=== PATIENT | male | born 1995 | race Caucasian/White ===

== ENCOUNTER → 2022-04-18 | Outpatient (CLI) | payer OTHER ==
--- NOTE | 2022-04-19 10:38 | MR ---
EXAMINATION TYPE: MR shoulder RT wo con DATE OF EXAM: 04/18/2022 COMPARISON: None. HISTORY: Rt shoulder pain for 3 years after injury. TECHNIQUE: Multiplanar, multisequence imaging of the right shoulder is performed without contrast. FINDINGS: Rotator Cuff: Small focal tear at articular surface of the posterior fibers infraspinatus tendon karl uring 6 mm transversely coronal image 20. No full-thickness for expected tear. Rotator cuff muscle bu lk preserved. Acromioclavicular Joint: Mild narrowing with moderate capsular hypertrophy. Underlying fat plane is m aintained. Glenohumeral Joint: Small effusion. No significant spurring Labrum: The labrum appears grossly intact given limitation of non-arthrogram study. Biceps Tendon: The long head of biceps is in normal location within bicipital groove. Bone marrow signal: No focal abnormal marrow signal is appreciated. Other: No additional significant abnormality is appreciated. IMPRESSION: Small focal articular surface partial tearing of the infraspinatus tendon. No labral tear seen.
== END | disposition home or self-care (01) ==
LOC: RADMRIMAIN 16:27
PROVIDERS: ATTEND Physician Assistant
DX: S46.001A Unspecified injury of muscle(s) and tendon(s) of the rotator cuff of right shoulder, initial encounter (principal); M25.611 Stiffness of right shoulder, not elsewhere classified; X58.XXXA Exposure to other specified factors, initial encounter

== ENCOUNTER → 2022-11-02 | Outpatient (CLI) | payer OTHER ==
--- NOTE | 2022-11-02 14:27 | P.SLEEP ---
History of Present Illness DATE: 11/02/2022 CONSULTATION/NEW PATIENT EVALUATION HISTORY OF PRESENT ILLNESS/SLEEP-WAKE EVALUATION: 27 year old gentleman had been evaluated in the sleep center for possible obstructive sleep apnea hypopnea syndrome. SLEEP SCHEDULE: Usually sleep schedule from 10:30 PM to 5:30 AM on weekdays and until 6:30 AM on weekend. FALLING ASLEEP: No significant problems with falling asleep. DURING SLEEP: Patient snores and has witnessed episodes of stop breathing during the sleep. No history of hypnogogical hallucinations, sleep paralysis, or cataplexy. DURING THE DAY/WAKE STATE: Patient feels tiredness during the day. Elizabeth sleepiness scale is 6. Usually patient doesn't take naps. PAST MEDICAL HISTORY: Hypothyroidism. PAST SURGICAL HISTORY: None. MEDICATIONS: Synthroid 137 g once a day. SOCIAL HISTORY: Negative for smoking, alcohol consumption occasional. FAMILY HISTORY: Thyroid problems. REVIEW OF SYSTEMS: Tiredness during the day. No fevers. No double vision. No recent chest pain. No shortness of breath. No abdominal pain. No bleeding episodes. No blood in urine. No seizure episodes. PHYSICAL EXAMINATION: GENERAL: A pleasant patient without any distress. VITAL SIGNS: BP 114/74, HR 88, RR 16, weight 191.2 pounds, height 6 foot one quarter inches, body mass index 25.7. HEENT: PERRLA, EOMI. Evaluation of oropharynx showed tongue protrudes midline, low position of soft palate Mallampati 4. NECK: Supple. No JVD. Thyroid is not palpable. 16-3/4 inches in circumference. LUNGS: Clear to percussion and to auscultation. Good air exchange. No wheezing or rhonchi. HEART: S1, S2 regular. No murmurs, gallops or rubs. ABDOMEN: Soft and nontender. Bowel sounds are present. No organomegaly appreciated. EXTREMITIES: No clubbing or cyanosis. [employer]: Awake, alert, and oriented x3. Cranial nerves 2 to 7 intact. There is no fasciculation or atrophy noted. No focal deficits observed. ASSESSMENT: 1. Snoring, witnessed episodes of stop breathing during the sleep, extremely low position of soft palate Mallampati 4, retrognathia, mild obstructive sleep apnea hypopnea syndrome by results of home sleep apnea test in another institution about 2 years ago. Obstructive sleep apnea hypopnea syndrome. 2. Hypothyroidism. PLAN: 1. Polysomnography for evaluation of patient's breathing during sleep. 2. CPAP/BiPAP titration if sleep study confirms obstructive sleep apnea- hypopnea syndrome. 3. Preferable position during sleep on the side. 4. No driving if patient feels any sleepiness. Patient is aware of civil and criminal liability for unsafe driving. 5. Sleep hygiene with regular sleep time for at least 7.5-8 hours. 6. Watching weight. Thank you very much for referring this patient for consultation. Sincerely, Johnny Cottrell MD, PhD, FAASM. Diplomat of [employer], Sleep Medicine Board by [employer] [facility] [place] [facility] [place] Sleep Note - Sleep Note Sleep Note: Temperature: Pulse Rate: Respiratory Rate: Blood Pressure: SpO2: Height: Weight: BMI: Neck Circumference:
== END ==
LOC: 3 N SLEEP 13:51
PROVIDERS: ATTEND Internal Medicine
DX: G47.33 Obstructive sleep apnea (adult) (pediatric) (principal); E03.9 Hypothyroidism, unspecified; M26.19 Other specified anomalies of jaw-cranial base relationship; Z79.890 Hormone replacement therapy
CPT/HCPCS: 99211